=== PATIENT | male | born 1980 | race Caucasian/White ===

== ENCOUNTER 2017-06-11 05:59 | Emergency (ER) | payer SELFPAY ==
[~2017-06-11] VITALS: Ht 185.4 cm; Wt 82.5 kg
[~2017-06-11 05:59] MED LIST: Z.0.NO CURRENT MEDS
[2017-06-11 06:05] VITALS: BP 153/90; PULSE 67; RESP 24; TEMP 98.3; O2SAT 99
[2017-06-11] MEDS ORDERED: SODIUM CHLOR 0.9% 1000 ML INJ 1,000 ML IV ONE ×2 (06:18→07:30)
--- NOTE | 2017-06-11 06:22 | PD ---
HPI Chief Complaint: Flank/Kidney Pain Time Seen by Provider: 06:18 Travel History International Travel<30 days: No Contact w/Intl Traveler<30days: No Traveled to known affect area: No History of Present Illness HPI 37-year-old male presents to the emergency department by private transportation for complaint of severe pain to the right flank area since 2 AM. Patient's had nausea. Patient had fever yesterday with dysuria and hematuria. No prior history of kidney stones or urinary tract infection. Patient states pain does radiate into her groin. No injury or fall. No lower extremity numbness tingling or weakness or saddle anesthesia. No bladder or bowel dysfunction. No report of chest pain or shortness breath. Patient did try [id number] medication without relief. PFSH Past Medical History Narrative Medical Oral surgery no tobacco use no alcohol use nursing notes reviewed Medical History: Denies Significant Hx Influenza Vaccination: No Past Surgical History Oral Surgery: Yes (WISDOM TEETH) Social History Alcohol Use: No Tobacco Use: No Substance Use: No Allergies-Medications (Allergen,Severity, Reaction): Coded Allergies: No Known Allergies (Verified Allergy, Mild, 06/11/17) Reported Meds & Prescriptions Reported Meds & Active Scripts Active No Active Prescriptions or Reported Medications Review of Systems Except as stated in HPI: all other systems reviewed are Neg General / Constitutional: Positive: Fever HENT: No: Congestion Cardiovascular: No: Chest Pain or Discomfort Respiratory: No: Shortness of Breath Gastrointestinal: Positive: Nausea, Vomiting, Abdominal Pain Genitourinary: Positive: Dysuria, Hematuria, Flank Pain, No: Urgency, Frequency Musculoskeletal: No: Myalgias, Arthralgias Skin: No Rash Neurologic: No: Weakness Psychiatric: Positive: Anxiety Hematologic/Lymphatic: No: Easy Bruising Physical Exam Narrative GENERAL: Well-developed well-nourished male in obvious discomfort mildly diaphoretic. SKIN: Warm and dry. HEAD: Normocephalic. EYES: No scleral icterus. No injection or drainage. NECK: Supple, trachea midline. No JVD or lymphadenopathy. CARDIOVASCULAR: Regular rate and rhythm without murmurs, gallops, or rubs. RESPIRATORY: Breath sounds equal bilaterally. No accessory muscle use. GASTROINTESTINAL: Abdomen soft, non-tender, nondistended. MUSCULOSKELETAL: No cyanosis, or edema. BACK: Nontender without obvious deformity. Reproducible right CVA tenderness to palpation and percussion. Data Data Last Documented VS Vital Signs Date Time Temp Pulse Resp B/P (MAP) Pulse Ox O2 Delivery O2 Flow Rate FiO2 06/11/17 06:26 66 06/11/17 06:05 98.3 24 153/90 (111) 99 Orders Orders Complete Blood Count With Diff (06/11/17 06:18) Comprehensive Metabolic Panel (06/11/17 06:18) Urinalysis - C+S If Indicated (06/11/17 06:18) Ct Abd/Pel W/O Iv Contrast (06/11/17 06:18) Ecg Monitoring (06/11/17 06:18) Iv Access Insert/Monitor (06/11/17 06:18) Ketorolac Inj (Toradol Inj) (06/11/17 06:30) Ondansetron Inj (Zofran Inj) (06/11/17 06:30) Sodium Chloride 0.9% Flush (Ns Flush) (06/11/17 06:30) Sodium Chlor 0.9% 1000 Ml Inj (Ns 1000 M (06/11/17 06:18) Ns (Bolus) Inj (06/11/17 07:30) Ceftriaxone Inj (Rocephin Inj) (06/11/17 07:30) Labs Laboratory Tests Test 06/11/17 06:15 White Blood Count 18.6 TH/MM3 Red Blood Count 5.19 MIL/MM3 Hemoglobin 15.8 GM/DL Hematocrit 46.1 % Mean Corpuscular Volume 88.9 FL Mean Corpuscular Hemoglobin 30.4 PG Mean Corpuscular Hemoglobin Concent 34.2 % Red Cell Distribution Width 11.5 % Platelet Count 253 TH/MM3 Mean Platelet Volume 8.0 FL Neutrophils (%) (Auto) 81.8 % Lymphocytes (%) (Auto) 9.8 % Monocytes (%) (Auto) 5.6 % Eosinophils (%) (Auto) 0.5 % Basophils (%) (Auto) 2.3 % Neutrophils # (Auto) 15.3 TH/MM3 Lymphocytes # (Auto) 1.8 TH/MM3 Monocytes # (Auto) 1.0 TH/MM3 Eosinophils # (Auto) 0.1 TH/MM3 Basophils # (Auto) 0.4 TH/MM3 CBC Comment AUTO DIFF Differential Comment AUTO DIFF CONFIRMED Blood Urea Nitrogen 6 MG/DL Creatinine 0.90 MG/DL Random Glucose 115 MG/DL Total Protein 8.7 GM/DL Albumin 4.2 GM/DL Calcium Level 9.7 MG/DL Alkaline Phosphatase 84 U/L Aspartate Amino Transf (AST/SGOT) 20 U/L Alanine Aminotransferase (ALT/SGPT) 41 U/L Total Bilirubin 0.7 MG/DL Sodium Level 139 MEQ/L Potassium Level 3.9 MEQ/L Chloride Level 106 MEQ/L Carbon Dioxide Level 25.5 MEQ/L Anion Gap 8 MEQ/L Estimat Glomerular Filtration Rate 95 ML/MIN MDM Medical Decision Making Medical Screen Exam Complete: Yes Emergency Medical Condition: Yes Medical Record Reviewed: Yes Differential Diagnosis Flank pain/renal colic, obstructive uropathy, pyelonephritis, atypical cholelithiasis/cholecystitis Narrative Course patient placed on monitor with pulse oximetry IV access obtained administered 1 L normal saline along with 30 mg of Toradol IV and 4 mg of Zofran IV as patient requests no narcotic medications. CT kidney stone protocol ordered. Care signed over to oncoming physician Dr. Banda Scripts No Active Prescriptions or Reported Meds Lynn Canela MD Jun 11, 2017 06:22
[2017-06-11] MEDS ORDERED: ONDANSETRON HCL 4 MG/2 ML VIAL IV PUSH ONE (06:30)
[2017-06-11] MEDS ORDERED: SODIUM CHLORIDE 0.9% FLUSH 10 ML FLUSH IVF PRN (06:30)
[2017-06-11] MEDS ORDERED: KETOROLAC TROMETHAMINE 30 MG/ML (IVP) VIAL IV PUSH ONE (06:30)
[2017-06-11 06:35] LABS: AUTOMATED NEUTROPHIL # 15.3 TH/MM3 (1.8-7.7); BASOPHIL # 0.4 TH/MM3 (0-0.2); BASOPHIL % 2.3 % (0.0-2.0); EOSINOPHIL # 0.1 TH/MM3 (0-0.4); EOSINOPHIL % 0.5 % (0.0-4.0); HEMATOCRIT 46.1 % (39.0-51.0); LYMPH % 9.8 % (9.0-44.0); LYMPHOCYTE # 1.8 TH/MM3 (1.0-4.8); MEAN CELL VOLUME 88.9 FL (80.0-100.0); MEAN CORPUSCULAR HEMOGLOBIN 30.4 PG (27.0-34.0); MEAN CORPUSCULAR HGB CONC 34.2 % (32.0-36.0); MONO % 5.6 % (0.0-8.0); NEUT % 81.8 % (16.0-70.0); PLATELET COUNT 253 TH/MM3 (150-450); RED BLOOD COUNT 5.19 MIL/MM3 (4.50-5.90); RED CELL DISTRIBUTION WIDTH 11.5 % (11.6-17.2); WHITE BLOOD COUNT 18.6 TH/MM3 (4.0-11.0)
[2017-06-11 06:39] LABS: HEMO FLAGS AUTO DIFF
[2017-06-11 06:49] LABS: CHLORIDE 106 MEQ/L (98-107); POTASSIUM 3.9 MEQ/L (3.5-5.1); SODIUM (NA) 139 MEQ/L (136-145)
[2017-06-11 06:53] LABS: ANION GAP 8 MEQ/L (5-15); BICARBONATE 25.5 MEQ/L (21.0-32.0); BLOOD UREA NITROGEN 6 MG/DL (7-18)
--- NOTE | 2017-06-11 06:55 | RADRPT ---
EXAM DATE/TIME: 06/11/2017 06:29 [facility] COMPARISON: No previous studies available for comparison. INDICATIONS : Right flank pain. ORAL CONTRAST: No oral contrast ingested. RADIATION DOSE: 13.22 CTDIvol (mGy) MEDICAL HISTORY : None SURGICAL HISTORY : None. ENCOUNTER: Initial ACUITY: 1 day PAIN SCALE: 9/10 LOCATION: Right flank TECHNIQUE: Volumetric scanning of the abdomen and pelvis was performed. Using automated exposure control and ad justment of the mA and/or kV according to patient size, radiation dose was kept as low as reasonably achievable to obtain optimal diagnostic quality images. DICOM format image data is available electro nically for review and comparison. FINDINGS: LOWER LUNGS: The visualized lower lungs are clear. LIVER: Homogeneous density without lesion. There is no dilation of the biliary tree. No calcified gallston es. SPLEEN: Normal size without lesion. PANCREAS: Within normal limits. KIDNEYS: Normal in size and shape. There is no solid mass, stone, or hydronephrosis. There are 2 low density cystic structures in the left kidney. Visualized portions of ureters are unremarkable. ADRENAL GLANDS: Within normal limits. VASCULAR: There is no aortic aneurysm. BOWEL/MESENTERY: No oral contrast was given limiting sensitivity. The stomach, small bowel, and colon demonstrate no a cute abnormality. There is no free intraperitoneal air or fluid. ABDOMINAL WALL: Within normal limits. RETROPERITONEUM: There is no lymphadenopathy. BLADDER: No wall thickening or mass. REPRODUCTIVE: Within normal limits. INGUINAL: There is no lymphadenopathy or hernia. MUSCULOSKELETAL: Within normal limits for patient age. CONCLUSION: 1. The kidneys are unremarkable in appearance except for 2 low density cystic structures in the left kidney. There are no renal calculi or obstruction. 2. Unremarkable appendix. There is a nonobstructive bowel gas pattern. Main Pope MD on June 11, 2017 at 6:51 Board Certified Radiologist. This report was verified electronically.
[2017-06-11 06:56] LABS: ALT (GPT) 41 U/L (12-78); AST (GOT) 20 U/L (15-37); GLOMERULAR FILTRATION RATE 95 ML/MIN (>89)
[2017-06-11 06:57] LABS: TOTAL BILIRUBIN ADULT 0.7 MG/DL (0.2-1.0)
[2017-06-11 06:59] LABS: ALKALINE PHOSPHATASE 84 U/L (45-117)
[2017-06-11 07:03] LABS: SCAN/DIFF AUTO DIFF CONFIRMED
[2017-06-11] MEDS ORDERED: cefTRIAXone INJ 1,000 MG in SODIUM CHLORIDE 0.9% INJ 100 ML IV ONE (07:30)
[2017-06-11 07:57] LABS: BLOOD, URINE LARGE (NEG); GLUCOSE,URINE NEG (NEG); KETONE, URINE TRACE mg/dL (NEG); NITRITE,URINE POS (NEG)
[2017-06-11 08:04] LABS: METHOD OF COLLECTION CLEAN CATCH; URINE COLOR LIGHT-BROWN (YELLW/STRAW)
[2017-06-11 08:05] LABS: RBC, URINE 0-3 /hpf (0-3)
[2017-06-11 08:06] LABS: BACTERIA, URINE FEW /hpf; COMMENT (UR) CULTURE INDICATED; CULTURE IF INDICATED CULTURE INDICATED
[2017-06-11] MEDS ORDERED: CEPH-460 PO (08:33)
[2017-06-11] MEDS ORDERED: NORC5TAB PO (08:33)
[2017-06-11] MEDS ORDERED: ZOFR4TAB PO (08:33)
--- NOTE | 2017-06-11 08:33 | PD ---
Physical Exam Date Seen by Provider: Jun 11, 2017 Narrative Care was assumed at 7 AM. The patient presented with right flank pain associated with fever and nausea. Data Data Last Documented VS Vital Signs Date Time Temp Pulse Resp B/P (MAP) Pulse Ox O2 Delivery O2 Flow Rate FiO2 06/11/17 06:26 66 06/11/17 06:05 98.3 24 153/90 (111) 99 Orders Orders Complete Blood Count With Diff (06/11/17 06:18) Comprehensive Metabolic Panel (06/11/17 06:18) Urinalysis - C+S If Indicated (06/11/17 06:18) Ct Abd/Pel W/O Iv Contrast (06/11/17 06:18) Ecg Monitoring (06/11/17 06:18) Iv Access Insert/Monitor (06/11/17 06:18) Ketorolac Inj (Toradol Inj) (06/11/17 06:30) Ondansetron Inj (Zofran Inj) (06/11/17 06:30) Sodium Chloride 0.9% Flush (Ns Flush) (06/11/17 06:30) Sodium Chlor 0.9% 1000 Ml Inj (Ns 1000 M (06/11/17 06:18) Sodium Chlor 0.9% 1000 Ml Inj (Ns 1000 M (06/11/17 07:30) Ceftriaxone Inj (Rocephin Inj) (06/11/17 07:30) Blood Culture (06/11/17 07:29) Urine Culture (06/11/17 07:33) Labs Laboratory Tests Test 06/11/17 06:15 06/11/17 07:33 White Blood Count 18.6 TH/MM3 Red Blood Count 5.19 MIL/MM3 Hemoglobin 15.8 GM/DL Hematocrit 46.1 % Mean Corpuscular Volume 88.9 FL Mean Corpuscular Hemoglobin 30.4 PG Mean Corpuscular Hemoglobin Concent 34.2 % Red Cell Distribution Width 11.5 % Platelet Count 253 TH/MM3 Mean Platelet Volume 8.0 FL Neutrophils (%) (Auto) 81.8 % Lymphocytes (%) (Auto) 9.8 % Monocytes (%) (Auto) 5.6 % Eosinophils (%) (Auto) 0.5 % Basophils (%) (Auto) 2.3 % Neutrophils # (Auto) 15.3 TH/MM3 Lymphocytes # (Auto) 1.8 TH/MM3 Monocytes # (Auto) 1.0 TH/MM3 Eosinophils # (Auto) 0.1 TH/MM3 Basophils # (Auto) 0.4 TH/MM3 CBC Comment AUTO DIFF Differential Comment AUTO DIFF CONFIRMED Blood Urea Nitrogen 6 MG/DL Creatinine 0.90 MG/DL Random Glucose 115 MG/DL Total Protein 8.7 GM/DL Albumin 4.2 GM/DL Calcium Level 9.7 MG/DL Alkaline Phosphatase 84 U/L Aspartate Amino Transf (AST/SGOT) 20 U/L Alanine Aminotransferase (ALT/SGPT) 41 U/L Total Bilirubin 0.7 MG/DL Sodium Level 139 MEQ/L Potassium Level 3.9 MEQ/L Chloride Level 106 MEQ/L Carbon Dioxide Level 25.5 MEQ/L Anion Gap 8 MEQ/L Estimat Glomerular Filtration Rate 95 ML/MIN Urine Collection Type CLEAN CATCH Urine Color LIGHT-BROWN Urine Turbidity CLOUDY Urine pH 8.0 Urine Specific [place] 1.020 Urine Protein 100 mg/dL Urine Glucose (UA) NEG mg/dL Urine Ketones TRACE mg/dL Urine Occult Blood LARGE Urine Nitrite POS Urine Bilirubin NEG Urine Leukocyte Esterase MOD Urine RBC 0-3 /hpf Urine WBC 20-24 /hpf Urine WBC Clumps MOD Urine Bacteria FEW /hpf Microscopic Urinalysis Comment CULTURE INDICATED MDM Supervised Visit with MARY: No Narrative Course Patient reports that he is feeling a lot better. CBC & BMP Diagram 06/11/17 06:15 Total Protein 8.7 H, Albumin 4.2, Calcium Level 9.7, Alkaline Phosphatase 84, Aspartate Amino Transf (AST/SGOT) 20, Alanine Aminotransferase (ALT/SGPT) 41, Total Bilirubin 0.7 Last Impressions Abdomen/Pelvis CT 06/11/17 0618 Signed Impressions: Service Date/Time: Sunday, June 11, 2017 06:29 - CONCLUSION: 1. The kidneys are unremarkable in appearance except for 2 low density cystic structures in the left kidney. There are no renal calculi or obstruction. 2. Unremarkable appendix. There is a nonobstructive bowel gas pattern. Main Pope MD Sepsis Criteria SIRS Criteria (2 or more): RR > 20 or PaCO2 < 32, WBC > 00511, < 4000 or > 10 % bands Sepsis Criteria (SIRS+source): Infect source susp/known Diagnosis Primary Impression: Sepsis Qualified Codes: A41.9 - Sepsis, unspecified organism Additional Impression: Urinary tract infection Qualified Codes: N10 - Acute pyelonephritis Patient Instructions: General Instructions, Urinary Tract Infection in Men (DC) Med/Other Pt SpecificInfo: Prescription(s) given Scripts Cephalexin (Keflex) 500 Mg Cap 500 MG PO Q8H for Infection, #30 CAP 0 Refills Prov: Madhuri Banda MD 06/11/17 Ondansetron (Zofran) 4 Mg Tab 4 MG PO Q6HR Y for NAUSEA OR VOMITING, #10 TAB 0 Refills Prov: Madhuri Banda MD 06/11/17 Hydrocodone-Acetaminophen ([place]) 5 Mg-325 Mg Tab 1 TAB PO Q4H Y for PAIN, #12 TAB 0 Refills Prov: Madhuri Banda MD 06/11/17 Madhuri Banda MD Jun 11, 2017 08:33
[2017-06-11 08:59] VITALS: BP 107/78; PULSE 66; RESP 18; O2SAT 98
[2017-06-11] MEDS ORDERED: IBUP1TAB7 PO (08:59)
== END 2017-06-11 09:12 | disposition home or self-care (01) ==
LOC: PHED 05:59
DX: A41.9 Sepsis, unspecified organism (principal); N10 Acute pyelonephritis; B96.20 Unspecified Escherichia coli [E. coli] as the cause of diseases classified elsewhere
CPT/HCPCS: 74176; 80053; 81001; 85025; 87040; 87077; 87086; 87186; 96361; 96374; 96375; 99285; J0696; J1885; J2405; J7030